=== PATIENT | male | born 1990 | race Caucasian/White ===

== ENCOUNTER → 2025-04-26 13:07 | Outpatient (REF) | payer BC, SELFPAY | LOC: RCS 13:07 | PROVIDERS: ATTENDING PHYSICIAN Nurse Practitioner Family | DX: R00.2 Palpitations (principal) | CPT/HCPCS: 93225; 93226 ==

== ENCOUNTER → 2025-09-12 07:43 | Outpatient (REF) | payer BC, SELFPAY | LOC: HWRAD 07:43 | PROVIDERS: ATTENDING PHYSICIAN Physician Assistant Medical | DX: N50.812 Left testicular pain (principal) | CPT/HCPCS: 76870; 93976 ==